=== PATIENT | female | born 1995 | race Caucasian/White ===

== ENCOUNTER 2016-04-09 20:32 | Inpatient (IN) | payer OTHER ==
[~2016-04-09] VITALS: Ht 167.6 cm; Wt 88.5 kg
[~2016-04-09 20:32] MED LIST: Labetalol Hcl PO
[2016-04-09] MEDS ORDERED: Penicillin G K Inj 5,000,000 UNITS in Dextrose 5% Minibag Plus 100 ML IV ONE (20:50)
[2016-04-09] MEDS ORDERED: Methylergonovine 0.2 mg/mL Inj IM PRN (20:50)
[2016-04-09] MEDS ORDERED: Hemorrhage Kit, Post Partum XX ONE (20:50)
[2016-04-09] MEDS ORDERED: Carboprost 250 mCg/mL Inj IM PRN (20:50)
[2016-04-09] MEDS ORDERED: Ondansetron 2 mg/mL 2 mL Inj IVPUSH PRN ×2 (20:50→22:05)
[2016-04-09] MEDS ORDERED: Sodium Chloride LOK Flush 10 mL Syringe IVFLUSH PRN (20:50)
[2016-04-09] MEDS ORDERED: Oxytocin 10 Unit/mL Inj IM PRN (20:50)
[2016-04-09] MEDS ORDERED: Oxytocin 30 Units/500 mL LR 30 UNITS in IV Premix 1 EACH IV PRN (20:50)
[2016-04-09] MEDS: Lactated Ringer's 1,000 ML IV PRN ×2 (21:25→21:30)
--- NOTE | 2016-04-09 21:25 | HP ---
[address] [address] HISTORY AND PHYSICAL PATIENT: EUGENE ALCALA : 1995 MR#: [id number] ADMIT: 04/09/2016 JOB ID: [id number] DATE: 04/09/2016 HISTORY OF PRESENT ILLNESS: The patient is a 20-year-old, 2, para 1, at 39 weeks and 5 days. Comes to Labor and Delivery at 9 o'clock p.m. with complaint of contractions and spontaneous rupture of membranes that she had at 7:30 p.m. The patient describes the contractions as regular every 2-3 minutes, intense painful pain scale of 6 to 7/10. Her care was relatively uncomplicated, she is group B strep positive. The prior was induced at 36 weeks and 4 days because of -induced hypertension. The patient does not have any preeclampsia signs and symptoms. Most recent blood pressures in the clinic on April 06, 2016 was 137/94. Repeat one was 129/84. NST was done and it was normal. heart rate tracing is reactive, category 1, baseline 140 beats per minute. SOCIAL HISTORY: Patient denies smoking, alcohol, illicit drug use. ALLERGIES: NKDA. FAMILY HISTORY: Noncontributory. PHYSICAL EXAMINATION: Blood pressure 139/89, pulse 91, temperature 36.7. HEENT: PERRLA. Chest: Good respiratory efforts, clear. Cardiovascular system: Regular rate and rhythm. Abdomen is gravid, moderately tender with contractions. Pelvic exam: The cervix is 4 cm dilated, 80% effaced, and station -2, ruptured membranes, mild meconium. Extremities: No pitting edema. ASSESSMENT AND PLAN: This is a 20-year-old, 2, para 1 at 39 weeks and 5 days, estimated due date April 11, 2016 in active labor with spontaneous rupture of membranes for 2 hours is being admitted for delivery. The patient has a history of -induced hypertension with prior , this was relatively uncomplicated, preeclampsia precautions were taken into consideration. The labs are being sent. The patient would like to have an epidural, the anesthesiologist is notified. IV hydration will be started with lactated Ringer 125 mL/h. GBS prophylaxis will be provided with penicillin. We will anticipate spontaneous vaginal delivery.
[2016-04-09 21:31] LABS: Mean Corpuscular Hemoglobin 23.6 pg (27.0-35.0); Mean Corpuscular Volume 76.4 fL (81-100)
[2016-04-09] MEDS ORDERED: Lactated Ringer's 1,000 ML IV SCH (22:05)
[2016-04-09] MEDS ORDERED: fentaNYL 2 mCg/mL-Bupiv 0.125% 100 ML EPIDURAL SCH (22:05)
[2016-04-09] MEDS ORDERED: Atropine 1 mg/10 mL (Code) Syringe IVPUSH PRN (22:05)
[2016-04-09] MEDS ORDERED: EPHEDrine Sulfate 50 mg/mL Inj IVPUSH PRN (22:05)
[2016-04-09] MEDS ORDERED: Lactated Ringer's 500 ML IV ONE (22:05)
--- NOTE | 2016-04-09 22:09 | PCM.HPANE ---
Patient Data Surgeon Admitting Provider:Tyrone Cazares MD Attending Provider:Tyrone Cazares MD Primary Care Physician:Jericho Other Provider: Reason for Visit Active Labor ACTIVE LABOR Ht/WT & BMI Body Mass Index Allergies Coded Allergies: No Known Allergies (Unverified Allergy, Unknown, 09/08/14) Diabetes History Hx Diabetes?: No MRSA MRSA: No Medications Active Scripts [Labetalol Hcl] (Normodyne)100 MG TABLET No Conflict Aizjs965 Mg PO BID #60 TABLET Ref 1 Prov:Trevor Morgan MD 09/12/14 History History of ENT Problems?: No Hx of Heart Problems?: No Hx of Respiratory Problem?: No Hx Neurologic Problems?: No Hx of GI Problems?: No Other History/Comment Gestational related reflux Hx of Problems?: No Other History/Comment at term SROM, with prior history of pre ecclampisa but not with this , unremarkable , + meconium Hx Musculoskeletal Problems?: No Hx of Psycho/Social Problems?: No Hx Surgeries?: No Hx Any Other Health Problems?: No Smoking Status: Never Smoker Stop/Bang Risk Assessment Category Category 1A: Patient has history of documented sleep apnea, and HAS NOT received any narcotic, sedative or anesthesia administration during this stay. Category 1B: Patient has history of documented sleep apnea, and HAS received any narcotic , sedative or anesthesia administration during this stay Category 2: Patient has SUSPECTED Obstructive Sleep Apnea, and HAS received any narcotic , sedative or anesthesia administration during this stay. Category 3: Patient has SUSPECTED Obstructive Sleep Apnea and HAS NOT received narcotic, sedative or anesthesia administration during this stay. Category 4: Outpatient in Procedural Areas with known sleep apnea or who screen positive for High Risk via the STOP/BANG questionnaire. Exam Exam General Appearance: Alert, Oriented X3, Mild Distress HEENT/AIRWAY: MP 2 Lungs: Clear to Auscultation Heart: Exam Unremarkable Meds/Labs/Diagnostics Admission Meds Current Medications Penicillin G Potassium/ Dextrose/Water (Pfizerpen Inj/ D5W Minibag Plus) 100 ml @ 240 mls/hr ONCE ONCE IV Last administered on 04/09/16 21:26; Start at 20:50; Stop 04/09/16 at 21:14; Status DC Labs Test 04/09/16 21:16 White Blood Count 16.0th/mm3 (3.8-10.1) Red Blood Count 4.32mil/mm3 (3.90-5.20) Hemoglobin 10.2g/dL (12.0-15.6) Hematocrit 33.0% (35.0-46.0) Mean Corpuscular Volume 76.4fL (81-100) Mean Corpuscular Hemoglobin 23.6pg (27.0-35.0) Mean Corpuscular Hemoglobin Concent 30.9% (32.0-37.0) Red Cell Distribution Width 15.9% (12.3-15.4) Platelet Count 240bil/L (150-400) Plan Impression Patient chart reviewed, patient interviewed and anesthestic plan with risks, benefits, and alternatives discussed, and informed consent obtained. Orion Serra MD Apr 09, 2016 22:09
[2016-04-10] MEDS: Lactated Ringer's 1,000 ML IV SCH ×3 (00:18→16:18)
[2016-04-10] MEDS ORDERED: Hemorrhage Kit, Post Partum XX ONE (00:20)
[2016-04-10] MEDS ORDERED: Carboprost 250 mCg/mL Inj IM PRN (00:20)
[2016-04-10] MEDS ORDERED: Witch Hazel-Glycerin Pads TOPICAL PRN (00:20)
[2016-04-10] MEDS ORDERED: Benzocaine (Dermoplast) 20% 60 Gm Spray TOPICAL PRN (00:20)
[2016-04-10] MEDS ORDERED: LANOlin HPA 7 Gm Ointment TOPICAL PRN (00:20)
[2016-04-10] MEDS ORDERED: Oxytocin 30 Units/500 mL LR 30 UNITS in IV Premix 1 EACH IV PRN (00:20)
[2016-04-10] MEDS ORDERED: HYDROcodone-APAP 5-325 mg Tablet PO PRN (00:20)
[2016-04-10] MEDS ORDERED: Oxytocin 10 Unit/mL Inj IM PRN (00:20)
[2016-04-10] MEDS ORDERED: Methylergonovine 0.2 mg/mL Inj IM PRN (00:20)
[2016-04-10] MEDS: Sodium Chloride LOK Flush 10 mL Syringe IVFLUSH SCH ×3 (00:30→16:30)
--- NOTE | 2016-04-10 01:01 | OP ---
[address] [address] OPERATIVE REPORT PATIENT: EUGENE ALCALA : 1995 MR#: [id number] ADMIT: 04/09/2016 JOB ID: [id number] DATE OF SURGERY: 04/10/2016 PREOPERATIVE DIAGNOSIS(ES): 1. A 20-year-old, 2 para 1, at 39 weeks and 5 days with spontaneous rupture of membranes. 2. Active labor. POSTOPERATIVE DIAGNOSIS(ES): Spontaneous vaginal delivery at term. SURGEON: Tyrone Cazares MD DESCRIPTION OF PROCEDURE: The patient is a 20-year-old, 2 para 2 now, who came to Labor and Delivery at 8:30 p.m., on April 09, 2016, with complaint of spontaneous rupture of membranes that happened at 7:30 p.m. The patient was lex every 2-3 minutes. She was noted to have mild meconium, servicing rep was notified. The patient was 4 cm dilated, 80% effaced, -1 station. She was admitted for delivery. As per patient's request, she received an epidural. The patient was group B Strep positive, penicillin prophylaxis was provided. The vitals were stable, heart rate tracing was reactive, category 1. She progressed to full dilation at 2351 p.m., and started pushing at around the same time. The patient underwent spontaneous vaginal delivery at 12:05 a.m., on April 10, 2016, delivered a male with Apgars 8 at one minute and 9 at five minutes. The placenta was delivered 4 minutes later, was found to be intact with 3-vessel cord. Estimated blood loss was 300 mL. The patient has not had any lacerations. Pitocin was started right after delivery of the .
[2016-04-10] MEDS ORDERED: Penicillin G K Inj 3,000,000 UNITS in IV Premix 1 EACH IV SCH (04:30)
--- NOTE | 2016-04-10 07:35 | PCM.PNOBPP ---
Subjective Date of Service Apr 10, 2016 Post : Spontaneous Vaginal Delivery Visit History 20y/o now P2 [facility] 39wks 5days in active labor and SROM. She has a history of preeclampsia with prior but current uncomplicated. She progressed to full dilation at 2351pm with at 12:05am on 04/10/16. She is GBS positive and received penicillin at time of delivery. Subjective Patient is doing well this morning. Pain well controlled, normal lochia, without issues, ambulating and voiding without difficulty. She plans on discussing contraception at her follow up appointment in 6weeks. For now she is planning on using control pills. Lochia: Normal Pain Management: No or Minimal Pain Gastrointestinal: Good Appetite, No N/V, Normal Bowel Movement Postop Activity: Ambulating Independently Group B Strep Results: Positive Rubella: Immune Blood Type: O RH Type: Positive Labs Laboratory Tests 04/09/16 21:16: White Blood Count 16.0, Red Blood Count 4.32, Hemoglobin 10.2, Hematocrit 33.0, Mean Corpuscular Volume 76.4, Mean Corpuscular Hemoglobin 23.6, Mean Corpuscular Hemoglobin Concent 30.9, Red Cell Distribution Width 15.9, Platelet Count 240 Exam Vital Signs Vital Signs BP 123/63, HR 96 Vital Signs: VS reviewed, stable Exam Abdomen: Fundus firm : Voiding without difficulty Extremities: No tenderness/swelling Lungs: Clear to Auscultation Heart: Regular Rate/Rhythm General: Alert, Oriented X3 OB Post Assessment/Plan Assessment 20 y/o G2 now P2 post- day 0 from a who is recovering appropriately. Pain Evaluation: Adequate Pain Control Post plan: Continue routine post care Plan: -Breast feeding going well -Ibuprofen prn for pain -Contraception plan: control pills -Anticipated discharge 04/11/16 -[facility], 6 weeks Iliana Goodman DO Apr 10, 2016 07:35
--- NOTE | 2016-04-10 11:47 | PCM.ANEP1 ---
Post Anesthesia Phase 1 PACU Phase 1 Assessment Date of Service: Apr 10, 2016 Vital Signs See OB documentation Anesthetic Administered: Epidural BAR's with Equal Strength: Yes Pain: No Nausea or Vomiting: No Oxygen Delivery: Room Air Lungs: Normal Air Movement Luis A Mcgrath MD Apr 10, 2016 11:47
--- NOTE | 2016-04-10 11:48 | PCM.ANEP2 ---
Post Anesthesia Evaluation ASA/CMS Post Anesthesia Date of Service: Apr 10, 2016 VS in Patient's Normal Range?: Yes Resp Stable; Airway Patent?: Yes CV Function & Hydration Stable: Yes Mental Status Recovered?: Yes Pain control Satisfactory?: Yes N/V Control Satisfactory?: Yes Luis A Mcgrath MD Apr 10, 2016 11:48
--- NOTE | 2016-04-10 11:55 | NUR ---
Shift Report Infant VSS. Baby has a complete diaper record. Babe/mom seen by . Babe Breasting on average 1-2 hours, lasting 25-40 minutes at a time. Baby was reported as being spitty by last nurse and did have an episode of spitting up 2-3cc milk/
[2016-04-11 06:53] LABS: Mean Corpuscular Hemoglobin 23.7 pg (27.0-35.0); Mean Corpuscular Volume 77.7 fL (81-100)
[2016-04-11] MEDS ORDERED: ASCO-294 PO (07:14)
[2016-04-11] MEDS ORDERED: FERR-83 PO (07:14)
[2016-04-11] MEDS ORDERED: IBUP800T28 PO (07:14)
[2016-04-11] MEDS ORDERED: DOCU-41 PO (07:14)
--- NOTE | 2016-04-11 10:57 | PCM.DIOB ---
CelenadesireeIliana Gonzales DO 04/11/16 0711: Obstetrical Disch Instruction Date of Service: Apr 11, 2016 Dates of Hospitalization Date of Hospital Admission Apr 09, 2016 at 20:40 Providers Admitting Physician: Tyrone Cazares MD Primary Care Physician: Jericho Attending Physician: Tyrone Cazares MD Discharge Diagnosis Discharge Diagnosis Term with normal spontaneous vaginal delivery Problems: Diet Discharge Diet: No restrictions Activity Discharge Activity-General: Pelvic Rest for 6 weeks, Balance rest and activity , Ice incision 3-5 time/day for 20min, Activity as pain allows, No lifting >15 pounds for 2 weeks Additional Instructions Discharge Instructions Continue your vitamin. Please take the iron and vitamin C together for your anemia. Iron can give you constipation so you have also been given a prescription for docusate to keep you regular. Be sure to follow up in 6 weeks at [facility]. Pelvic rest for 6 weeks (nothing per vagina including intercourse, tampons) If you have a fever greater than 100.4, please call [facility]. There is always someone operations expert to talk to. If you have an increase in bleeding, call [facility]. If you have a lot of bleeding suddenly, especially if you have symptoms of dizziness & weakness with it, get emergency help. When you see [facility] in two weeks, you will be informed of the results of all the labs. If you start experiencing extreme depression, especially if you feel that you are a danger to yourself or your family, seek emergency help. You have been through a lot -- BE SURE TO TAKE CARE OF YOURSELF. Follow Up Plan Follow Up Plan Follow up in 2 weeks at [facility] and again at 6 weeks. Follow-up Provider (F9): [facility] Call your provider for: Fever or Chills, Shortness of breath, Heavy vaginal bleeding, Epigastric pain, Excessive constipation Janna Robles MD 04/11/16 1121: Obstetrical Disch Instruction Attending Statement I saw patient and examined her. I agree with above evaluation and plan RexIliana Gonzales DO Apr 11, 2016 07:11 Janna Robles MD Apr 11, 2016 11:21
--- NOTE | 2016-04-11 10:59 | PCM.DC.OB ---
Obstetrical Discharge Summary Date of Service Apr 11, 2016 Date of hospital admission Apr 09, 2016 at 20:40 Date of Discharge: Apr 11, 2016 Providers Admitting Physician: Tyrone Cazares MD Primary Care Physician: Jericho Attending Physician: Tyrone Cazares MD Diagnosis at Time of Discharge Term with Problems: Brief History and Physical: 20 y/o G2 now P2 post- day 1 from a who is recovering appropriately. Pain well controlled with ibuprofen. She is ambulating and voiding without difficulty, lochia normal, and is going well. Plans to use control pills post-. Exam: Abdomen: Fundus firm : Voiding without difficulty Extremities: No tenderness/swelling Lungs: Clear to Auscultation Heart: Regular Rate/Rhythm General: Alert, Oriented X3 Hospital Course: 20y/o now P2 who presented to the [facility] at 39wks 5days in active labor and SROM. She has a history of preeclampsia with prior but current uncomplicated. She progressed to full dilation at 2351pm with at 12:05am on 04/10/16. She is GBS positive and received penicillin at time of delivery. She was discharged in stable condition on day 1. . ([Labetalol Hcl]) 100 MG TABLET 100 MG PO BID Prescribed by: DAVID RODRIGUEZ MD Ascorbate Calcium (Vitamin C) 500 Mg Tablet 500 MG PO DAILY Prescribed by: LALO VICTOR DO Docusate Sodium (Colace) 100 Mg Capsule 100 MG PO BID Prescribed by: LALO VICTOR DO Ferrous Sulfate (Ferrous Sulfate) 325 Mg Tablet 325 MG PO DAILY Prescribed by: LALO VICTOR DO Ibuprofen (Ibuprofen) 800 Mg Tablet 800 MG PO Q8H PRN PRN For Pain Prescribed by: LALO VICTOR DO Discharge Medications: Vitamin C 500mg PO daily Docusate sodium 100mg PO BID Ferrous sulfate 325mg PO daily Ibuprofen Follow-up plan Follow up in 2 weeks at [facility] and again at 6 weeks. Discharge Diet: No restrictions Discharge Activity-General: Pelvic Rest for 6 weeks Patient instructions Continue your vitamin. Please take the iron and vitamin C together for your anemia. Iron can give you constipation so you have also been given a prescription for docusate to keep you regular. Be sure to follow up in 2 weeks and then again in 6 weeks at [facility]. Pelvic rest for 6 weeks (nothing per vagina including intercourse, tampons) If you have a fever greater than 100.4, please call [facility]. There is always someone account resolution analyst to talk to. If you have an increase in bleeding, call [facility]. If you have a lot of bleeding suddenly, especially if you have symptoms of dizziness & weakness with it, get emergency help. When you see [facility] in two weeks, you will be informed of the results of all the labs. If you start experiencing extreme depression, especially if you feel that you are a danger to yourself or your family, seek emergency help. You have been through a lot -- BE SURE TO TAKE CARE OF YOURSELF. Attending Statement: I saw patient and examined her. Agree with above evaluation and plan Lalo Victor DO Apr 11, 2016 07:15 Janna Robles MD Apr 11, 2016 11:22
[2016-04-11 13:50] VITALS: BP 125/82; PULSE 93; RESP 16
== END 2016-04-11 14:52 | disposition home or self-care (01) | DRG 775 ==
LOC: FBCO 20:32 → FBC 20:40
PROVIDERS: ADMIT Legal Medicine; ATTEND Legal Medicine
PROC: 10E0XZZ Delivery of Products of Conception, External Approach (ICD-10-PCS; principal; 2016-04-10)
DX: O69.81X0 Labor and delivery complicated by cord around neck, without compression, not applicable or unspecified (principal); Z37.0 Single live birth; Z3A.39 39 weeks gestation of pregnancy; O99.824 Streptococcus B carrier state complicating childbirth